=== PATIENT | male | born 1945 | race African-American/Black ===

== ENCOUNTER 2021-03-07 13:59 | Inpatient (IN) ==
[2021-03-08] MEDS ORDERED: DEXTROSE 50% 25 GM/50 ML VIAL IV PRN (00:42)
[2021-03-08] MEDS ORDERED: GLUCAGON 1 MG VIAL IM PRN (00:42)
[2021-03-08 01:38] LABS: Basophils % 0.3 % (0.0-0.8); Eosinophils # 0.2 10*3/uL (0.0-0.87); Eosinophils % 1.2 % (0.00-10.9); Hematocrit 29.6 VOL% (42.0-52.0); Hemoglobin 9.4 GM/DL (14.0-18.0); Immature Granulocytes % 0.5 %; Immature Granulocytes Absolute 0.07 #; Lymphocytes % 54.6 % (21.2-54.2); Mean Corpuscular HGB Conc 31.8 GM/DL (32-36); Mean Corpuscular Volume 99.7 FL (87-102); Monocytes % 12.2 % (1.7-12.7); Neutrophils % 31.2 % (38.7-73.9); Platelet Count 172 T/CUMM (130-400); Red Blood Count 2.97 MC/CUMM (3.8-5.5); Red Cell Distribution Width 14.7 % (9.3-17.3); White Blood Count 14.6 T/CUMM (4-12)
[2021-03-08 02:08] LABS: Calcium 8.4 MG/DL (8.5-10.1); Osmolality,Calculated 276.9 MOS/KG (273-304); Potassium 3.8 MMOL/L (3.5-5.1); Total Protein 5.5 G/DL (6.4-8.2)
[2021-03-08] MEDS: SODIUM CHLORIDE 0.9% 1,000 ML IV SCH (02:15)
[2021-03-08 02:32] LABS: Bilirubin,Total 13.8 MG/DL (0.20-1.00)
[2021-03-08 04:12] LABS: Hypochromasia 1+; Lymphocytes 56 % (20-55); Platelet Estimate Adequate; Segmented Neutrophils 37 % (50-85); Total Cells Counted 100
[2021-03-08 04:13] LABS: Atypical Lymphocytes Few; Microcytosis Slight
[2021-03-08 06:18] LABS: Bilirubin,Urine Moderate mg/dL (Negative); Blood, Urine Small mg/dL (Negative); Glucose,Urine (UA) >=500 mg/dL (Negative); Ketones,Urine Negative (Negative); Nitrite,Urine Negative (Negative); Protein,Urine 30 MG/DL; Squamous Epithelial Cell,Urine Occasional /HPF (0-10); Urine Appearance CLEAR (Clear); Urine Color Amber (Yellow); Urine Specific Gravity 1.015 (1.001-1.035)
[2021-03-08] MEDS: ENOXAPARIN 30 MG/0.3 ML SYRINGE SUBCUT SCH (09:21)
[2021-03-08] MEDS: MORPHINE 2 MG/1 ML SYRINGE IV PRN ×3 (09:22→22:51)
[2021-03-08] MEDS ORDERED: BISACODYL 10 MG SUPP RECTAL PRN (13:43)
[2021-03-08] MEDS ORDERED: BISACODYL 10 MG SUPP RECTAL ONE (15:00)
[2021-03-09] MEDS: SODIUM CHLORIDE 0.9% 1,000 ML IV SCH (00:50)
[2021-03-09 05:30] LABS: Basophils % 0.3 % (0.0-0.8); Eosinophils # 0.2 10*3/uL (0.0-0.87); Eosinophils % 1.4 % (0.00-10.9); Hematocrit 33.2 VOL% (42.0-52.0); Hemoglobin 10.6 GM/DL (14.0-18.0); Immature Granulocytes % 0.5 %; Immature Granulocytes Absolute 0.08 #; Lymphocytes # 7.7 10*3/uL (1.4-4.0); Lymphocytes % 50.9 % (21.2-54.2); Mean Corpuscular HGB Conc 31.9 GM/DL (32-36); Mean Corpuscular Volume 99.7 FL (87-102); Mean Platelet Volume 12.4 FL (9.6-12.0); Monocytes % 13.5 % (1.7-12.7); Neutrophils % 33.4 % (38.7-73.9); Platelet Count 184 T/CUMM (130-400); Red Blood Count 3.33 MC/CUMM (3.8-5.5); Red Cell Distribution Width 14.7 % (9.3-17.3); White Blood Count 15.1 T/CUMM (4-12)
[2021-03-09 05:52] LABS: Eosinophils 1 % (0-10); Lymphocytes 66 % (20-55); Platelet Estimate Adequate; Segmented Neutrophils 29 % (50-85); Total Cells Counted 100
[2021-03-09 05:53] LABS: Atypical Lymphocytes Few; Hypochromasia 1+; Microcytosis 1+
[2021-03-09 06:19] LABS: Calcium 8.9 MG/DL (8.5-10.1); Osmolality,Calculated 283.2 MOS/KG (273-304); Potassium 4.1 MMOL/L (3.5-5.1)
[2021-03-09 06:36] LABS: Bilirubin,Total 15.2 MG/DL (0.20-1.00)
[2021-03-09] MEDS ORDERED: DEXTROSE 50% 25 GM/50 ML VIAL IV PRN (08:13)
[2021-03-09] MEDS ORDERED: GLUCAGON 1 MG VIAL IM PRN (08:13)
[2021-03-09] MEDS: ENOXAPARIN 30 MG/0.3 ML SYRINGE SUBCUT SCH (09:09)
[2021-03-09] MEDS: INSULIN REGULAR 100 UNIT/ML SUBCUT SCH ×3 (11:27→20:58)
[2021-03-09] MEDS ORDERED: hydrALAZINE 20 MG/1 ML VIAL IV PRN (13:55)
[2021-03-09] MEDS: ONDANSETRON 4 MG/2 ML VIAL IV PRN (20:59)
[2021-03-10] MEDS: SODIUM CHLORIDE 0.9% 1,000 ML IV SCH ×3 (05:30→20:51)
[2021-03-10 06:28] LABS: Basophils # 0.1 10*3/uL (0.0-0.2); Basophils % 0.3 % (0.0-0.8); Eosinophils # 0.2 10*3/uL (0.0-0.87); Eosinophils % 1.5 % (0.00-10.9); Hematocrit 34.4 VOL% (42.0-52.0); Hemoglobin 10.6 GM/DL (14.0-18.0); Immature Granulocytes % 0.4 %; Immature Granulocytes Absolute 0.07 #; Lymphocytes # 8.3 10*3/uL (1.4-4.0); Lymphocytes % 52.9 % (21.2-54.2); Mean Corpuscular HGB Conc 30.8 GM/DL (32-36); Mean Corpuscular Volume 102.4 FL (87-102); Mean Platelet Volume 11.9 FL (9.6-12.0); Monocytes % 14.2 % (1.7-12.7); Neutrophils % 30.7 % (38.7-73.9); Platelet Count 240 T/CUMM (130-400); Red Blood Count 3.36 MC/CUMM (3.8-5.5); Red Cell Distribution Width 15.1 % (9.3-17.3); White Blood Count 15.6 T/CUMM (4-12)
[2021-03-10 06:37] LABS: INR 1.7; PT Patient Result 18.8 SECS (10.5-12.0)
[2021-03-10 07:15] LABS: Albumin 2.1 G/DL (3.4-5.0); Calcium 9.6 MG/DL (8.5-10.1); Osmolality,Calculated 280.2 MOS/KG (273-304); Potassium 3.9 MMOL/L (3.5-5.1)
[2021-03-10 07:17] LABS: Bilirubin,Total 14.2 MG/DL (0.20-1.00)
[2021-03-10 07:18] LABS: Lymphocytes 53 % (20-55); Platelet Estimate Normal; Segmented Neutrophils 37 % (50-85); Total Cells Counted 100
[2021-03-10 07:20] LABS: Triglycerides 253 MG/DL (2-150); VLDL Cholesterol 50.6 MG/DL
[2021-03-10 07:32] LABS: Carcinoembryonic Antigen 11.8 NG/ML (0.0-5.0)
[2021-03-10 07:33] LABS: HDL Cholesterol < 10 MG/DL (40-60)
[2021-03-10] MEDS ORDERED: ONDANSETRON 4 MG/2 ML VIAL ONE (07:54)
[2021-03-10] MEDS ORDERED: ROCURONIUM 50 MG/5 ML VIAL IV ONE (07:54)
[2021-03-10] MEDS ORDERED: MIDAZOLAM 2 MG/2 ML VIAL ONE (07:54)
[2021-03-10] MEDS ORDERED: SUCCINYLCHOLINE 200 MG/10 ML VIAL ONE (07:54)
[2021-03-10] MEDS ORDERED: SEVOFLURANE 1 UNIT/15 MINUTE INH ONE ×2 (07:54→13:26)
[2021-03-10] MEDS ORDERED: fentaNYL 100 MCG/2 ML VIAL ONE (07:54)
[2021-03-10] MEDS ORDERED: propofoL 200 MG/20 ML VIAL IV ONE (07:54)
[2021-03-10] MEDS ORDERED: LIDOCAINE 2% 5 ML VIAL ONE (07:54)
[2021-03-10 08:41] LABS: Cancer Antigen 19-9 26021.87 U/ML (0-35)
[2021-03-10] MEDS: INSULIN REGULAR 100 UNIT/ML SUBCUT SCH ×2 (08:56→12:41)
[2021-03-10] MEDS ORDERED: ALBUTEROL/IPRATROPIUM 3 ML NEB RESP TX STA (10:39)
[2021-03-10] MEDS ORDERED: INDOMETHACIN SUPP 50 MG SUPP RECTAL STA (12:39)
[2021-03-10] MEDS ORDERED: PHENYLEPHRINE 1 MG/10 ML SYRINGE IV ONE (12:57)
[2021-03-10] MEDS ORDERED: GLYCOPYRROLATE 0.4 MG/2 ML VIAL ONE (13:15)
[2021-03-10] MEDS ORDERED: NEOSTIGMINE 10 MG/10 ML VIAL ONE (13:15)
[2021-03-10] MEDS: INSULIN LISPRO 100 UNIT/ML SUBCUT SCH ×3 (17:16→20:45)
[2021-03-10] MEDS: FLUTAMIDE PO SCH ×2 (17:16→22:20)
[2021-03-10] MEDS: TAMSULOSIN 0.4 MG CAPSULE PO SCH (20:45)
[2021-03-10] MEDS: rOPINIRole 0.25 MG TABLET PO SCH (20:45)
[2021-03-11 05:43] LABS: Basophils % 0.2 % (0.0-0.8); Eosinophils # 0.2 10*3/uL (0.0-0.87); Eosinophils % 1.3 % (0.00-10.9); Hematocrit 28.8 VOL% (42.0-52.0); Hemoglobin 8.7 GM/DL (14.0-18.0); Immature Granulocytes % 0.5 %; Lymphocytes # 12.4 10*3/uL (1.4-4.0); Mean Corpuscular HGB Conc 30.2 GM/DL (32-36); Mean Corpuscular Volume 104.3 FL (87-102); Mean Platelet Volume 11.8 FL (9.6-12.0); Monocytes % 10.1 % (1.7-12.7); Neutrophils % 21.9 % (38.7-73.9); Platelet Count 236 T/CUMM (130-400); Red Blood Count 2.76 MC/CUMM (3.8-5.5); Red Cell Distribution Width 15.1 % (9.3-17.3); White Blood Count 18.8 T/CUMM (4-12)
[2021-03-11 06:21] LABS: Albumin 1.8 G/DL (3.4-5.0); Bilirubin,Total 6.2 MG/DL (0.20-1.00); Calcium 8.2 MG/DL (8.5-10.1); Potassium 4.4 MMOL/L (3.5-5.1); Total Protein 5.6 G/DL (6.4-8.2)
[2021-03-11 06:36] LABS: Atypical Lymphocytes Few; Eosinophils 2 % (0-10); Lymphocytes 65 % (20-55); Segmented Neutrophils 30 % (50-85); Total Cells Counted 100
[2021-03-11 06:37] LABS: Hypochromasia 1+; Microcytosis 1+; Smudge Cells Few; Stomatocytes Slight
[2021-03-11 06:38] LABS: Platelet Estimate Normal; Polychromasia Slight
[2021-03-11] MEDS: INSULIN LISPRO 100 UNIT/ML SUBCUT SCH ×6 (09:25→21:02)
[2021-03-11] MEDS: amLODIPine 10 MG TABLET PO SCH (09:25)
[2021-03-11] MEDS: TAMSULOSIN 0.4 MG CAPSULE PO SCH ×2 (09:26→21:13)
[2021-03-11] MEDS: FLUTAMIDE PO SCH ×3 (09:26→21:18)
[2021-03-11] MEDS: SODIUM CHLORIDE 0.9% 1,000 ML IV SCH ×2 (09:30→23:33)
[2021-03-11] MEDS: ONDANSETRON 4 MG/2 ML VIAL IV PRN (09:30)
[2021-03-11] MEDS ORDERED: NON-FORMULARY MEDICATION (Insulin Glargine [Basaglar Kwikpen U-100 Insulin] 100 unit/mL (3 SUBCUT SCH (11:30)
[2021-03-11] MEDS ORDERED: hydrALAZINE 25 MG TABLET PO SCH (15:00)
[2021-03-11] MEDS: hydrALAZINE 25 MG TABLET PO SCH (21:13)
[2021-03-11] MEDS: rOPINIRole 0.25 MG TABLET PO SCH (21:13)
[2021-03-11] MEDS: INSULIN GLARGINE 100 UNIT/ML SUBCUT SCH (21:14)
[2021-03-12 05:26] LABS: Basophils # 0.1 10*3/uL (0.0-0.2); Basophils % 0.3 % (0.0-0.8); Eosinophils # 0.3 10*3/uL (0.0-0.87); Eosinophils % 1.2 % (0.00-10.9); Hematocrit 26.8 VOL% (42.0-52.0); Hemoglobin 8.3 GM/DL (14.0-18.0); Immature Granulocytes % 0.4 %; Immature Granulocytes Absolute 0.11 #; Lymphocytes # 19.5 10*3/uL (1.4-4.0); Lymphocytes % 71.9 % (21.2-54.2); Mean Corpuscular Volume 102.3 FL (87-102); Mean Platelet Volume 11.5 FL (9.6-12.0); Monocytes % 8.1 % (1.7-12.7); Neutrophils % 18.1 % (38.7-73.9); Platelet Count 230 T/CUMM (130-400); Red Blood Count 2.62 MC/CUMM (3.8-5.5); Red Cell Distribution Width 14.6 % (9.3-17.3); White Blood Count 27.1 T/CUMM (4-12)
[2021-03-12 06:06] LABS: Bilirubin,Total 4.6 MG/DL (0.20-1.00); Calcium 7.8 MG/DL (8.5-10.1); Osmolality,Calculated 282.4 MOS/KG (273-304); Potassium 3.6 MMOL/L (3.5-5.1); Total Protein 5.5 G/DL (6.4-8.2)
[2021-03-12 06:13] LABS: Atypical Lymphocytes Few; Eosinophils 3 % (0-10); Hypochromasia Slight; Lymphocytes 62 % (20-55); Platelet Estimate Normal; Segmented Neutrophils 33 % (50-85); Smudge Cells 1+; Total Cells Counted 100
[2021-03-12] MEDS: amLODIPine 10 MG TABLET PO SCH (08:08)
[2021-03-12] MEDS: TAMSULOSIN 0.4 MG CAPSULE PO SCH ×2 (08:08→22:54)
[2021-03-12] MEDS: hydrALAZINE 25 MG TABLET PO SCH ×2 (08:09→22:54)
[2021-03-12] MEDS: INSULIN LISPRO 100 UNIT/ML SUBCUT SCH ×6 (08:09→19:39)
[2021-03-12] MEDS: INSULIN GLARGINE 100 UNIT/ML SUBCUT SCH ×2 (08:09→23:01)
[2021-03-12] MEDS: FLUTAMIDE PO SCH ×3 (08:24→22:49)
[2021-03-12] MEDS: SODIUM CHLORIDE 0.9% 1,000 ML IV SCH (13:45)
[2021-03-12] MEDS: rOPINIRole 0.25 MG TABLET PO SCH (22:54)
[2021-03-13] MEDS: SODIUM CHLORIDE 0.9% 1,000 ML IV SCH ×2 (03:20→16:33)
[2021-03-13] MEDS: ONDANSETRON 4 MG/2 ML VIAL IV PRN ×3 (06:33→16:32)
[2021-03-13 09:21] LABS: Basophils # 0.1 10*3/uL (0.0-0.2); Basophils % 0.2 % (0.0-0.8); Eosinophils # 0.2 10*3/uL (0.0-0.87); Hematocrit 26.8 VOL% (42.0-52.0); Hemoglobin 8.5 GM/DL (14.0-18.0); Immature Granulocytes % 0.6 %; Immature Granulocytes Absolute 0.13 #; Lymphocytes % 72.6 % (21.2-54.2); Mean Corpuscular HGB Conc 31.7 GM/DL (32-36); Mean Corpuscular Volume 102.7 FL (87-102); Mean Platelet Volume 10.9 FL (9.6-12.0); Monocytes % 6.8 % (1.7-12.7); Neutrophils % 18.8 % (38.7-73.9); Platelet Count 231 T/CUMM (130-400); Red Blood Count 2.61 MC/CUMM (3.8-5.5); Red Cell Distribution Width 14.9 % (9.3-17.3); White Blood Count 23.4 T/CUMM (4-12)
[2021-03-13] MEDS: amLODIPine 10 MG TABLET PO SCH (09:38)
[2021-03-13] MEDS: TAMSULOSIN 0.4 MG CAPSULE PO SCH ×2 (09:38→22:05)
[2021-03-13] MEDS: hydrALAZINE 25 MG TABLET PO SCH ×2 (09:38→22:06)
[2021-03-13] MEDS: INSULIN GLARGINE 100 UNIT/ML SUBCUT SCH ×2 (09:39→22:06)
[2021-03-13] MEDS: INSULIN LISPRO 100 UNIT/ML SUBCUT SCH ×6 (09:40→19:43)
[2021-03-13 09:42] LABS: Atypical Lymphocytes Few; Eosinophils 1 % (0-10); Hypochromasia 1+; Lymphocytes 74 % (20-55); Segmented Neutrophils 21 % (50-85); Smudge Cells Few; Total Cells Counted 100
[2021-03-13 09:43] LABS: Microcytosis 1+; Platelet Estimate Normal
[2021-03-13 09:51] LABS: Albumin 2.1 G/DL (3.4-5.0); Bilirubin,Total 4.3 MG/DL (0.20-1.00); Calcium 7.8 MG/DL (8.5-10.1); Osmolality,Calculated 287.5 MOS/KG (273-304); Potassium 3.3 MMOL/L (3.5-5.1); Total Protein 5.9 G/DL (6.4-8.2)
[2021-03-13] MEDS: FLUTAMIDE PO SCH ×3 (10:57→22:05)
[2021-03-13] MEDS ORDERED: POTASSIUM CHLORIDE 20 MEQ TABLET PO ONE (17:00)
[2021-03-13 17:01] LABS: Bilirubin,Urine Negative (Negative); Blood, Urine Negative (Negative); Glucose,Urine (UA) >=500 mg/dL (Negative); Hyaline Casts,Urine 3 /LPF (0-3); Ketones,Urine Negative (Negative); Mucus,Urine Occasional /LPF (Occasional); Nitrite,Urine Negative (Negative); Protein,Urine 30 MG/DL; RBC,Urine <1 /HPF (0-4); Squamous Epithelial Cell,Urine Occasional /HPF (0-10); Urine Appearance CLEAR (Clear); Urine Color Amber (Yellow); Urine Specific Gravity 1.015 (1.001-1.035)
[2021-03-13] MEDS: rOPINIRole 0.25 MG TABLET PO SCH (22:05)
[2021-03-14] MEDS ORDERED: PROMETHAZINE 25 MG/1 ML VIAL IM PRN (01:53)
[2021-03-14] MEDS ORDERED: MORPHINE 2 MG/1 ML SYRINGE IM PRN (01:55)
[2021-03-14 04:58] LABS: Basophils # 0.1 10*3/uL (0.0-0.2); Basophils % 0.2 % (0.0-0.8); Eosinophils # 0.2 10*3/uL (0.0-0.87); Eosinophils % 0.8 % (0.00-10.9); Hematocrit 25.2 VOL% (42.0-52.0); Hemoglobin 7.6 GM/DL (14.0-18.0); Immature Granulocytes % 0.5 %; Immature Granulocytes Absolute 0.12 #; Lymphocytes # 19.7 10*3/uL (1.4-4.0); Lymphocytes % 77.8 % (21.2-54.2); Mean Corpuscular HGB Conc 30.2 GM/DL (32-36); Mean Corpuscular Volume 104.6 FL (87-102); Mean Platelet Volume 11.4 FL (9.6-12.0); Monocytes % 5.7 % (1.7-12.7); Platelet Count 245 T/CUMM (130-400); Red Blood Count 2.41 MC/CUMM (3.8-5.5); Red Cell Distribution Width 15.1 % (9.3-17.3); White Blood Count 25.3 T/CUMM (4-12)
[2021-03-14 05:26] LABS: Atypical Lymphocytes Few; Eosinophils 2 % (0-10); Hypochromasia 1+; Lymphocytes 71 % (20-55); Microcytosis 1+; Platelet Estimate Adequate; Segmented Neutrophils 24 % (50-85); Smudge Cells Few; Total Cells Counted 100
[2021-03-14 05:28] LABS: Bilirubin,Total 3.7 MG/DL (0.20-1.00); Osmolality,Calculated 285.7 MOS/KG (273-304); Potassium 3.4 MMOL/L (3.5-5.1); Total Protein 5.5 G/DL (6.4-8.2)
[2021-03-14] MEDS: ONDANSETRON 4 MG/2 ML VIAL IV PRN (06:10)
[2021-03-14] MEDS: INSULIN LISPRO 100 UNIT/ML SUBCUT SCH ×6 (08:46→21:10)
[2021-03-14] MEDS: INSULIN GLARGINE 100 UNIT/ML SUBCUT SCH ×2 (08:46→21:11)
[2021-03-14] MEDS: TAMSULOSIN 0.4 MG CAPSULE PO SCH ×2 (08:47→21:10)
[2021-03-14] MEDS: amLODIPine 10 MG TABLET PO SCH (08:47)
[2021-03-14] MEDS: hydrALAZINE 25 MG TABLET PO SCH ×2 (08:47→21:10)
[2021-03-14] MEDS: SODIUM CHLORIDE 0.9% 1,000 ML IV SCH (08:47)
[2021-03-14] MEDS: FLUTAMIDE PO SCH ×3 (10:04→21:10)
[2021-03-14] MEDS ORDERED: POTASSIUM BICARB EFFERVESCENT 20 MEQ TAB.EFF PO ONE (11:00)
[2021-03-14] MEDS ORDERED: MAGNESIUM SULF RIDER 2 GM/50 ML PREMIX IV ONE (11:00)
[2021-03-14 14:27] LABS: Hepatitis B Surface Ag Quant < 0.10 Index; Hepatitis B Surface Ag Result Non-Reactive (NonReactive)
[2021-03-14 18:08] LABS: HIV Antigen/Antibody Result Nonreactive (Nonreactive)
[2021-03-14] MEDS: rOPINIRole 0.25 MG TABLET PO SCH (21:10)
[2021-03-15 02:12] LABS: Basophils # 0.1 10*3/uL (0.0-0.2); Basophils % 0.2 % (0.0-0.8); Eosinophils # 0.3 10*3/uL (0.0-0.87); Eosinophils % 0.8 % (0.00-10.9); Hematocrit 25.6 VOL% (42.0-52.0); Hemoglobin 7.6 GM/DL (14.0-18.0); Immature Granulocytes % 0.4 %; Immature Granulocytes Absolute 0.13 #; Lymphocytes % 78.9 % (21.2-54.2); Mean Corpuscular HGB Conc 29.7 GM/DL (32-36); Mean Corpuscular Volume 107.1 FL (87-102); Mean Platelet Volume 11.3 FL (9.6-12.0); Monocytes % 6.6 % (1.7-12.7); Neutrophils % 13.1 % (38.7-73.9); Platelet Count 255 T/CUMM (130-400); Red Blood Count 2.39 MC/CUMM (3.8-5.5); Red Cell Distribution Width 15.8 % (9.3-17.3)
[2021-03-15 02:34] LABS: Albumin 2.1 G/DL (3.4-5.0); Bilirubin,Total 4.4 MG/DL (0.20-1.00); Osmolality,Calculated 281.3 MOS/KG (273-304); Potassium 3.2 MMOL/L (3.5-5.1); Total Protein 5.5 G/DL (6.4-8.2)
[2021-03-15 03:35] LABS: Eosinophils 1 % (0-10); Lymphocytes 76 % (20-55); Segmented Neutrophils 19 % (50-85); Total Cells Counted 100
[2021-03-15 03:36] LABS: Atypical Lymphocytes Few; Hypochromasia 1+; Platelet Estimate Normal; Polychromasia Few; Reactive Lymphocytes 1+
[2021-03-15] MEDS: hydrALAZINE 25 MG TABLET PO SCH ×2 (08:38→22:06)
[2021-03-15] MEDS: amLODIPine 10 MG TABLET PO SCH (08:38)
[2021-03-15] MEDS: FLUTAMIDE PO SCH ×3 (08:38→22:17)
[2021-03-15] MEDS: TAMSULOSIN 0.4 MG CAPSULE PO SCH ×2 (08:38→22:06)
[2021-03-15] MEDS: INSULIN LISPRO 100 UNIT/ML SUBCUT SCH ×6 (08:39→22:16)
[2021-03-15] MEDS ORDERED: POTASSIUM CHLORIDE 20 MEQ TABLET PO ONE (08:39)
[2021-03-15] MEDS ORDERED: MAGNESIUM SULF RIDER 2 GM/50 ML PREMIX IV ONE (08:39)
[2021-03-15] MEDS: INSULIN GLARGINE 100 UNIT/ML SUBCUT SCH ×2 (08:42→22:11)
[2021-03-15] MEDS: ONDANSETRON 4 MG/2 ML VIAL IV PRN ×2 (09:58→17:37)
[2021-03-15] MEDS: rOPINIRole 0.25 MG TABLET PO SCH (22:05)
[2021-03-16 05:45] LABS: Basophils # 0.1 10*3/uL (0.0-0.2); Basophils % 0.2 % (0.0-0.8); Eosinophils # 0.4 10*3/uL (0.0-0.87); Eosinophils % 1.1 % (0.00-10.9); Hematocrit 25.7 VOL% (42.0-52.0); Immature Granulocytes % 0.4 %; Immature Granulocytes Absolute 0.14 #; Lymphocytes # 25.1 10*3/uL (1.4-4.0); Lymphocytes % 77.9 % (21.2-54.2); Mean Corpuscular HGB Conc 31.1 GM/DL (32-36); Mean Corpuscular Volume 105.8 FL (87-102); Monocytes % 5.5 % (1.7-12.7); Neutrophils % 14.9 % (38.7-73.9); Platelet Count 258 T/CUMM (130-400); Red Blood Count 2.43 MC/CUMM (3.8-5.5); Red Cell Distribution Width 16.9 % (9.3-17.3); White Blood Count 32.2 T/CUMM (4-12)
[2021-03-16 06:11] LABS: Albumin 2.3 G/DL (3.4-5.0); Bilirubin,Total 3.6 MG/DL (0.20-1.00); Calcium 8.1 MG/DL (8.5-10.1); Eosinophils 2 % (0-10); Lymphocytes 67 % (20-55); Osmolality,Calculated 271.7 MOS/KG (273-304); Platelet Estimate Normal; Potassium 3.4 MMOL/L (3.5-5.1); Segmented Neutrophils 29 % (50-85); Total Cells Counted 100; Total Protein 5.8 G/DL (6.4-8.2)
[2021-03-16 06:12] LABS: Smudge Cells Few
[2021-03-16] MEDS: amLODIPine 10 MG TABLET PO SCH (09:55)
[2021-03-16] MEDS: hydrALAZINE 25 MG TABLET PO SCH ×2 (09:56→23:01)
[2021-03-16] MEDS: INSULIN GLARGINE 100 UNIT/ML SUBCUT SCH ×2 (09:56→23:02)
[2021-03-16] MEDS: TAMSULOSIN 0.4 MG CAPSULE PO SCH ×2 (09:56→23:01)
[2021-03-16] MEDS: INSULIN LISPRO 100 UNIT/ML SUBCUT SCH ×6 (10:38→23:02)
[2021-03-16] MEDS: FLUTAMIDE PO SCH ×3 (10:39→23:00)
[2021-03-16] MEDS ORDERED: POTASSIUM CHLORIDE 20 MEQ TABLET PO ONE (11:00)
[2021-03-16 16:07] LABS: % Iron Saturation 32.8 % (18-50)
[2021-03-16 16:14] LABS: Folate 8.35 NG/ML (5.38-24.0)
[2021-03-16] MEDS: rOPINIRole 0.25 MG TABLET PO SCH (23:01)
[2021-03-17] MEDS: INSULIN LISPRO 100 UNIT/ML SUBCUT SCH ×6 (08:46→21:16)
[2021-03-17] MEDS: INSULIN GLARGINE 100 UNIT/ML SUBCUT SCH ×2 (09:33→21:17)
[2021-03-17] MEDS: hydrALAZINE 25 MG TABLET PO SCH ×2 (09:34→21:15)
[2021-03-17] MEDS: FLUTAMIDE PO SCH ×3 (09:34→21:15)
[2021-03-17] MEDS: TAMSULOSIN 0.4 MG CAPSULE PO SCH ×2 (09:34→21:15)
[2021-03-17] MEDS ORDERED: POTASSIUM CHLORIDE 20 MEQ TABLET PO ONE (11:00)
[2021-03-17] MEDS: amLODIPine 10 MG TABLET PO SCH (12:30)
[2021-03-17] MEDS: POTASSIUM CHLORIDE 20 MEQ TABLET PO SCH (12:30)
[2021-03-17] MEDS: FUROSEMIDE 40 MG/4 ML VIAL IV SCH (16:33)
[2021-03-17] MEDS: rOPINIRole 0.25 MG TABLET PO SCH (21:15)
[2021-03-17] MEDS: ONDANSETRON 4 MG/2 ML VIAL IV PRN (22:30)
[2021-03-18] MEDS: FUROSEMIDE 40 MG/4 ML VIAL IV SCH ×2 (08:43→17:10)
[2021-03-18] MEDS: POTASSIUM CHLORIDE 20 MEQ TABLET PO SCH (08:43)
[2021-03-18] MEDS: TAMSULOSIN 0.4 MG CAPSULE PO SCH ×2 (08:43→20:30)
[2021-03-18] MEDS: hydrALAZINE 25 MG TABLET PO SCH ×2 (08:43→20:30)
[2021-03-18] MEDS: amLODIPine 10 MG TABLET PO SCH (08:43)
[2021-03-18] MEDS: FLUTAMIDE PO SCH ×3 (10:10→20:30)
[2021-03-18] MEDS: INSULIN GLARGINE 100 UNIT/ML SUBCUT SCH ×2 (10:10→20:31)
[2021-03-18] MEDS: INSULIN LISPRO 100 UNIT/ML SUBCUT SCH ×6 (10:11→20:30)
[2021-03-18] MEDS: rOPINIRole 0.25 MG TABLET PO SCH (20:30)
[2021-03-18] MEDS: ONDANSETRON 4 MG/2 ML VIAL IV PRN (22:38)
[2021-03-19] MEDS: INSULIN LISPRO 100 UNIT/ML SUBCUT SCH ×6 (07:44→20:28)
[2021-03-19] MEDS: FUROSEMIDE 40 MG/4 ML VIAL IV SCH ×2 (09:44→15:37)
[2021-03-19] MEDS: INSULIN GLARGINE 100 UNIT/ML SUBCUT SCH ×2 (09:45→20:27)
[2021-03-19] MEDS: hydrALAZINE 25 MG TABLET PO SCH ×2 (09:46→20:26)
[2021-03-19] MEDS: TAMSULOSIN 0.4 MG CAPSULE PO SCH ×2 (09:46→20:26)
[2021-03-19] MEDS: POTASSIUM CHLORIDE 20 MEQ TABLET PO SCH (09:46)
[2021-03-19] MEDS: amLODIPine 10 MG TABLET PO SCH (09:47)
[2021-03-19] MEDS: FLUTAMIDE PO SCH ×3 (11:44→20:27)
[2021-03-19] MEDS: rOPINIRole 0.25 MG TABLET PO SCH (20:26)
[2021-03-20] MEDS: LOPERAMIDE 2 MG CAPSULE PO PRN ×2 (02:09→14:27)
[2021-03-20] MEDS: POTASSIUM CHLORIDE 20 MEQ TABLET PO SCH (08:52)
[2021-03-20] MEDS: TAMSULOSIN 0.4 MG CAPSULE PO SCH (08:52)
[2021-03-20] MEDS: hydrALAZINE 25 MG TABLET PO SCH (08:52)
[2021-03-20] MEDS: amLODIPine 10 MG TABLET PO SCH (08:52)
[2021-03-20] MEDS: INSULIN LISPRO 100 UNIT/ML SUBCUT SCH ×3 (08:53→11:26)
[2021-03-20] MEDS: INSULIN GLARGINE 100 UNIT/ML SUBCUT SCH (08:54)
[2021-03-20] MEDS: FLUTAMIDE PO SCH (09:26)
[2021-03-20 11:53] VITALS: BP 127/56
[2021-03-20] MEDS ORDERED: TUBERCULIN SKIN TEST 0.1 ML SYRINGE INTRADERM ONE (13:00)
== END 2021-03-20 15:30 | DRG 435 ==
LOC: SUATTDRO 22:35 → INTOOBSV 22:35 → N.5E 22:35 → SUATTDRO 03-09 15:42
PROVIDERS: ADMIT Internal Medicine; ATTEND Internal Medicine